=== PATIENT | female | born 1985 | race Asian ===

== ENCOUNTER 2021-12-27 11:50 | Outpatient (CLI) | payer OTHER | END 2021-12-27 19:37 | disposition home or self-care (01) | LOC: RAD 11:50 | PROVIDERS: ATTEND Nurse Practitioner Family | DX: E55.9 Vitamin D deficiency, unspecified (principal); E56.8 Deficiency of other vitamins; M06.4 Inflammatory polyarthropathy; M35.00 Sjogren syndrome, unspecified; Z68.36 Body mass index [BMI] 36.0-36.9, adult ==

== ENCOUNTER → 2022-02-14 | Outpatient (CLI) | payer OTHER | LOC: RAD 15:47 | PROVIDERS: ATTEND Nurse Practitioner Family | DX: M54.59 Other low back pain (principal) ==